=== PATIENT | male | born 2000 | race Caucasian/White ===

== ENCOUNTER 2021-08-23 08:18 | Emergency (ER) | payer OTHER ==
[2021-08-23] MEDS ORDERED: PROCHLORPERAZINE 10 MG/2 ML VIAL IVP STA (08:42)
[2021-08-23] MEDS ORDERED: KETOROLAC 30 MG/ML VIAL IVP STA (08:42)
[2021-08-23] MEDS ORDERED: SODIUM CHLORIDE 0.9% 1,000 ML IV STA (08:42)
[2021-08-23] MEDS ORDERED: DEXAMETHASONE 10 MG/ML VIAL IVP STA (08:42)
[2021-08-23] MEDS ORDERED: diphenhydrAMINE INJ 50 MG/ML VIAL IVP STA (08:42)
--- NOTE | 2021-08-23 08:44 | ED Physician Documentation ---
PD HPI HEADACHE - Stated complaint Stated Complaint: FEVER/PATEL/N & V - Chief complaint Chief Complaint: Heent - History obtained from History obtained from: Patient - History of Present Illness Timing - onset: Yesterday Timing - onset during: Rest Timing - duration: Days (2) Timing - details: Gradual onset, Still present, Waxing and waning Location: Front Quality: Throbbing Associated symptoms: Nausea, Vomiting. No: Fever, Stiff neck, Weakness, Numbn ess, Syncope, Seizure, Eye pain, Vision changes Improved by: Rest, Dark room Contributing factors: No: Anticoagulated Similar symptoms before: Has not had sx before Recently seen: Not recently seen - Additional information Additional information: Previously well 21-year-old active [employer] [place] male developed a headache yesterday and has not usually had headaches. He has some throbbing associated with this in the frontal area he does not otherwise feel ill except that he began vomiting about 5:00 in the morning. He was asked by his command to come to the emergency department for evaluation. He denies a history of migraine headache. He denies a aura prior to the onset of the symptoms. He does not have a family history of migraine headache. He has not had these symptom complexes before. Review of Systems Constitutional: denies: Fever Eyes: denies: Decreased vision Ears: denies: Ear pain Nose: denies: Rhinorrhea / runny nose, Congestion Throat: denies: Sore throat Cardiac: denies: Chest pain / pressure, Palpitations Respiratory: denies: Dyspnea, Cough GI: reports: Nausea, Vomiting. denies: Abdominal Pain : denies: Dysuria, Frequency Skin: denies: Rash Musculoskeletal: denies: Neck pain, Back pain, Extremity pain Neurologic: reports: Headache. denies: Generalized weakness, Focal weakness, Numbness, Syncope, Seizure, Confused, Head injury, LOC PD PAST MEDICAL HISTORY - Past Medical History Past Medical History: No Cardiovascular: None Respiratory: None Neuro: None Endocrine/Autoimmune: None GI: None : None HEENT: None Psych: None Musculoskeletal: None Derm: None - Past Surgical History Past Surgical History: No - Allergies Allergies/Adverse Reactions: Allergies Allergy/AdvReac Type Severity Reaction Status Date / Time No Known Drug Allergies Allergy Verified 08/23/21 08:30 - Social History Does the pt smoke?: No Smoking Status: Never smoker Does the pt drink ETOH?: No Does the pt have substance abuse?: No - Immunizations Immunizations are current?: Yes - POLST Patient has POLST: No PD ED PE NORMAL - Vitals Vital signs reviewed: Yes (hypertensive mild ) - General General: Alert and oriented X 3, No acute distress, Well developed/nourished - HEENT HEENT: Atraumatic, PERRL, EOMI, Ears normal, Moist mucous membranes, Pharynx benign, Dentition benign - Neck Neck: Supple, no meningeal sign, No bony TTP - Cardiac Cardiac: RRR, No murmur - Respiratory Respiratory: No respiratory distress, Clear bilaterally - Abdomen Abdomen: Normal bowel sounds, Soft, Non tender, Non distended, No organomegaly - Back Back: No CVA TTP, No spinal TTP - Derm Derm: Normal color, Warm and dry, No rash - Extremities Extremities: No deformity, No edema - Neuro Neuro: Alert and oriented X 3, 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, No motor deficit, No sensory deficit, Normal speech Eye Opening: Spontaneous Motor: Obeys Commands Verbal: Oriented GCS Score: 15 - Psych Psych: Normal mood, Normal affect Results - Vitals Vitals: Vital Signs - 24 hr 08/23/21 08/23/21 08:25 10:02 Temperature 36.8 C 36.8 C Heart Rate 88 82 Respiratory 16 16 Rate Blood Pressure 138/81 H 129/87 H O2 Saturation 99 98 Oxygen O2 Source Room air PD MEDICAL DECISION MAKING - ED course Complexity details: reviewed results, re-evaluated patient, considered differential, d/w patient ED course: 21-year-old male with a headache and vomiting is treated with a migraine cocktail with improvement. Departure - Departure Disposition: 01 Home, Self Care Clinical Impression: Headache Qualifiers: Headache type: tension-type Headache chronicity pattern: acute headache Intractability: not intractable Qualified Code(s): G44.209 - Tension-type headache, unspecified, not intractable Condition: Stable Instructions: ED Headache Tension, ED Headache Migraine Follow-Up: ANTONELLA GALLEGOS MD [Primary Care Provider] - Discharge Date/Time: 08/23/21 10:02
[2021-08-23 10:02] VITALS: BP 129/87
== END 2021-08-23 10:02 | disposition home or self-care (01) ==
LOC: ED 08:18
DX: G44.209 Tension-type headache, unspecified, not intractable (principal)
CPT/HCPCS: 96374; 96375; 99282; 99285; J1200

== ENCOUNTER 2023-02-06 22:55 | Emergency (ER) | payer OTHER ==
--- NOTE | 2023-02-06 23:43 | ED Physician Documentation ---
PD HPI LOWER EXT INJURY - Stated complaint Stated Complaint: LT KNEE PAIN - Chief complaint Chief Complaint: Trauma Ext - History obtained from History obtained from: Patient - Additional information Additional information: The patient comes to the emergency department chief complaint of left knee pain after an injury while playing soccer this evening. He states that he planted his foot to pivot and felt as though he hyperextended his left knee. He states that it happened early in the game and he did not play for the rest of the game because of the discomfort. He states he has been able to walk on the leg but that it hurts if he flexes it. However, he is able to demonstrate that he can still flex to approximately 45 degrees despite discomfort. He states that the discomfort is mainly around the central, patellar area but a little bit deeper than that. The patient denies any other injuries. He did not feel a pop or snap. He has no history of injury to this knee before. No other complaints at this time. PD PAST MEDICAL HISTORY - Past Medical History Past Medical History: No Cardiovascular: None Respiratory: None Neuro: None Endocrine/Autoimmune: None GI: None : None HEENT: None Psych: None Musculoskeletal: None Derm: None - Past Surgical History Past Surgical History: No - Present Medications Home Medications: Ambulatory Orders Medication Instructions Recorded Confirmed No Known Home Medications 02/06/23 02/06/23 - Allergies Allergies/Adverse Reactions: Allergies Allergy/AdvReac Type Severity Reaction Status Date / Time No Known Drug Allergies Allergy Verified 02/06/23 23:03 - Social History Does the pt smoke?: No Smoking Status: Never smoker Does the pt drink ETOH?: No Does the pt have substance abuse?: No - Immunizations Immunizations are current?: Yes - POLST Patient has POLST: No PD ED PE NORMAL - Vitals Vital signs reviewed: Yes - General General: Alert and oriented X 3, No acute distress, Well developed/nourished - HEENT HEENT: Atraumatic, PERRL, EOMI, Moist mucous membranes - Neck Neck: Supple, no meningeal sign - Cardiac Cardiac: Strong equal pulses - Respiratory Respiratory: No respiratory distress - Derm Derm: Normal color, Warm and dry, No rash - Extremities Extremities: No deformity, Other (Very mild edema globally of the left knee without deformity. No joint line tenderness. Can raise straight leg. No instability. No point tenderness. Mildly limited flexion secondary to discomfort.) - Neuro Neuro: Alert and oriented X 3 - Psych Psych: Normal mood, Normal affect Results - Vitals Vitals: Vital Signs - 24 hr 02/06/23 23:00 Temperature 2.3 C L Heart Rate 80 Respiratory 14 Rate Blood Pressure 157/73 H O2 Saturation 98 Oxygen O2 Source Room air - Rads (name of study) Left knee x-ray series Relevant Findings:: EMP independent interpretation of test (No fracture or dislocation) PD Medical Decision Making - ED course Complexity details: reviewed results, re-evaluated patient, considered differential, d/w patient ED course: The patient's left knee x-ray series was unremarkable. He declined splint or Duncan wrap, and did not feel that he needed crutches. He stated he can ambulate on the knee and he was mainly here because he was told to come in and get it checked out before the morning. At this point in time, I suspect a sprain. The patient's knee is stable and we have discussed symptomatic management at home as well as usual indications for follow-up and return. Departure - Departure Disposition: 01 Home, Self Care Clinical Impression: Knee sprain Qualifiers: Encounter type: initial encounter Involved ligament of knee: unspecified ligament Laterality: left Qualified Code(s): S83.92XA - Sprain of unspecified site of left knee, initial encounter Condition: Stable Instructions: ED Sprain Knee Comments: Your x-ray series looks good at this point in time. Most likely, you have sustained a sprain to your knee. This is a soft tissue injury which will ultimately heal on its own but can take some weeks. Sometimes some extra support, either from a splint or an Duncan wrap, can help with some of the discomfort. You could also take Tylenol and ibuprofen to help with this, as well. Please follow-up with your doctor if you are not noticing at least some improvement in the next 2 to 3 weeks. You should wait to play soccer again until you can walk and jog comfortably on the knee without discomfort.
[2023-02-06 23:54] VITALS: BP 151/68
--- NOTE | 2023-02-07 00:11 | XRAY Report ---
PROCEDURE: Knee 3 View LT INDICATIONS: sport's insjury, hyperextended leg then fell. TECHNIQUE: 3 views of the left knee were acquired. COMPARISON: None. FINDINGS: Bones: No fractures or dislocations. No suspicious bony lesions. Soft tissues: There is a small knee joint effusion. No suspicious soft tissue calcifications or mass es. IMPRESSION: 1. No fracture or dislocation. Reviewed by: Juan Cosme MD on 02/07/2023 12:10 AM PDT Approved by: Juan Cosme MD on 02/07/2023 12:10 AM PDT Station ID: [id number]
== END 2023-02-06 23:53 | disposition home or self-care (01) ==
LOC: ED 22:55
DX: S83.92XA Sprain of unspecified site of left knee, initial encounter (principal); X50.1XXA Overexertion from prolonged static or awkward postures, initial encounter; Y93.66 Activity, soccer
CPT/HCPCS: 99283